=== PATIENT | female | born 2000 | race Caucasian/White ===

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

== ENCOUNTER 2020-04-15 10:06 | Emergency (ER) | payer OTHER ==
[~2020-04-15] VITALS: Ht 170.2 cm; Wt 78.9 kg
--- NOTE | 2020-04-15 10:59 | NUR ---
TASK RN. ASSISTING PRIMARY RN SPENCER WITH PT CHECK IN. 20 Y/O F PRESENTS STATING "PAIN IN MY STOMACH SINCE THIS MORNING, STARTED 30 MINUTES AFTER EATING OATMEAL. SAW MY PCP DR. ARRINGTON AND THEY DID A URINE SAMPLE, SAID I HAD BLOOD IN MY URINE AND THE TEST WAS NEGATIVE. WHEN THE PAIN STARTED IT WAS RADIATING UP MY ARM AND INTO MY BACK BUT THAT HAS STOPPED NOW. I HAVE CHRONIC BACK PAIN AND MY LOWER BACK HAS BEEN SPASMING MORE LATELY. THEY WANT TO RULE OUT APPENDICITIS." ASSESSMENT COMPLETED. ABD SOFT, BOWEL SOUNDS PRESENT/ACTIVE, ABD TENDER TO PALPATION IN ALL QUADRANTS, WORSE IN BLQ. CONT PULSE OX, BP MONITORS APPLIED. VSS. CALL LIGHT IN REACH. FALL PRECAUTIONS IN PLACE. SIDE RAILS UPX2. A&OX4. FAMILY AT BEDSIDE. UA COLLECTED AND SENT TO LAB. DR. WEST AT BEDSIDE FOR EVALUATION, AWAITING ADDITIONAL ORDERS.
--- NOTE | 2020-04-15 11:12 | NUR ---
BEDSIDE REPORT AND TRANSFER OF CARE TO SPENCER RN AT THIS TIME
[2020-04-15] MEDS ORDERED: BIRTH CONTROL PO (11:13)
[2020-04-15] MEDS ORDERED: ALBU8.5H8 INH (11:13)
[2020-04-15 11:14] LABS: MICROSCOPIC AUTO
[2020-04-15 11:35] LABS: BASOPHILS % (AUTO) 1 % (0-1); EOSINOPHILS % (AUTO) 3 % (1-7); LYMPHOCYTES % (AUTO) 28 % (22-44); MD NO; MEAN CORPUSCULAR HEMOGLOBIN 29.2 pg (27.0-34.8); MEAN CORPUSCULAR HGB CONC 33.3 g/dL (32.4-35.8); MEAN PLATELET VOLUME 8.6 fL (7.4-10.4); MONOCYTES % (AUTO) 5 % (2-9); NEUTROPHILS % (AUTO) 63 % (42-75); PLATELET COUNT 297 x10^3/uL (130-400); RED BLOOD COUNT 4.28 x10^6/uL (3.82-5.3); RED CELL DISTRIBUTION WIDTH 12.1 % (9.6-15.2)
[2020-04-15 11:46] LABS: ALANINE AMINOTRANSFERASE 15 U/L (12-78); ALBUMIN 3.8 g/dL (3.4-5.0); ANION GAP 7 mmol/L (5-15); CALCIUM 8.4 mg/dL (8.5-10.1); CHLORIDE 112 mmol/L (98-107); CREATININE 0.75 mg/dL (0.55-1.02)
[2020-04-15 11:50] LABS: ALKALINE PHOSPHATASE 59 U/L (45-117); BILIRUBIN,TOTAL 0.3 mg/dL (0.2-1.0)
--- NOTE | 2020-04-15 12:00 | NUR ---
report taken from ALVARO Larios, this RN assumed care. pt is a&ox4, resps even and unlabored, reporting abd pain is tolerable. declines medication at this time. labs and urine sent, awaiting ct scan and dispo at this time. call light in reach.
[2020-04-15] MEDS ORDERED: OMNIPAQUE 350 MG/ML, 100ML BOTTLE ONE (12:35)
--- NOTE | 2020-04-15 13:30 | NUR ---
ALL RESULTS BACK, CHART UP FOR RECHECK, AWAITING MD AND DISPO.
--- NOTE | 2020-04-15 14:08 | NUR ---
PT RESTING ON GURNEY, A&O, RESPS EVEN AND UNLABORED. PT STATES ABD PAIN MINIMAL, DECLINES NEED FOR PAIN MED. PT INFORMED OF POC AND RESULTS BY MD, PT AGREEABLE TO MRI. S/O AT BEDSIDE. REPORT GIVEN AT BEDSIDE TO ALVARO BROOKS.
--- NOTE | 2020-04-15 14:12 | NUR ---
ERP NOTIFIED PT HAD TRIAGE COMPLAINT OF LEFT ARM, NO EKG TAKEN YET. PER ERP BRETT, PT'S SYMPTOMS DO NOT REQUIRE AN EKG.
--- NOTE | 2020-04-15 14:15 | NUR ---
pt resting in bed. partner supportive at bedside. vss. pain controlled.
[2020-04-15] MEDS ORDERED: GADOTERATE 7.5 MMOL/15 ML VIAL ONE (15:18)
--- NOTE | 2020-04-15 15:20 | NUR ---
PT RESTING IN BED COMFORTABLY. VSS.
[2020-04-15 16:41] VITALS: BP 106/72
== END 2020-04-15 17:26 | disposition home or self-care (01) ==
LOC: ED 12:51
DX: R31.29 Other microscopic hematuria (principal); R10.32 Left lower quadrant pain; R10.31 Right lower quadrant pain
CPT/HCPCS: 36415; 74177; 74183; 80053; 81001; 83690; 84703; 85025; 99285; A9575; Q9967

== ENCOUNTER → 2020-05-15 | Outpatient (CLI) | payer OTHER ==
[~2020-05-15] MED LIST: ALBU8.5H8 INH; BIRTH CONTROL PO
== END | disposition home or self-care (01) ==
LOC: RAD 12:36
PROVIDERS: ATTEND Family Medicine
DX: R10.9 Unspecified abdominal pain (principal)
CPT/HCPCS: 78227; A9537

== ENCOUNTER → 2020-05-22 | Outpatient (CLI) | payer OTHER ==
[~2020-05-22] MED LIST changes: +CETI10TA18 PO; +DICY20TA3 PO; +NORG1TAB8 PO; +SUMA50TA4 PO
== END | disposition home or self-care (01) ==
LOC: STAR 15:30
PROVIDERS: ATTEND Surgery
DX: Z20.828 Contact with and (suspected) exposure to other viral communicable diseases (principal)
CPT/HCPCS: 87635

== ENCOUNTER 2020-05-27 07:54 | Day surgery (SDC) | payer OTHER ==
[~2020-05-27] VITALS: Ht 172.7 cm; Wt 76.8 kg
[~2020-05-27 07:54] MED LIST changes: +BUPIVACAINE/PF 0.25% ONE
[2020-05-27 08:51] VITALS: BP 114/81
[2020-05-27] MEDS ORDERED: CHLORHEXIDINE 15 ML UDC ONE (08:55)
[2020-05-27] MEDS ORDERED: LACTATED RINGERS 1,000 ML IV SCH (09:00)
[2020-05-27] MEDS ORDERED: CHLORHEXIDINE 15 ML UDC MM ONE (09:00)
[2020-05-27 09:06] LABS: HCG UR SG 1.016 (1.003-1.030)
[2020-05-27] MEDS ORDERED: MIDAZOLAM 1 MG/ML, 2ML ONE (09:24)
[2020-05-27] MEDS ORDERED: FENTANYL PF 250 MCG/5ML ONE (09:24)
[2020-05-27] MEDS ORDERED: CEFOTETAN 1 GM ONE (10:21)
[2020-05-27] MEDS ORDERED: KETOROLAC 30 MG/1 ML ONE (10:21)
[2020-05-27] MEDS ORDERED: PROPOFOL 10 MG/ML, 20ML ONE (10:21)
[2020-05-27] MEDS ORDERED: ROCURONIUM 10 MG/ML,10ML ONE (10:21)
[2020-05-27] MEDS ORDERED: ONDANSETRON 2MG/ML, 2ML ONE (10:21)
[2020-05-27] MEDS ORDERED: DEXAMETHASONE 4 MG/ML, 1ML ONE (10:21)
[2020-05-27] MEDS ORDERED: ONDANSETRON 2MG/ML, 2ML IVPush PRN (10:30)
[2020-05-27] MEDS ORDERED: OXYcodone 5 MG/5 ML ORAL.SOL UDC PO PRN (10:30)
[2020-05-27] MEDS ORDERED: MEPERIDINE/PF 25MG/0.5ML IVPush PRN (10:30)
[2020-05-27] MEDS ORDERED: ACETAMINOPHEN 325 MG TABLET PO PRN (10:30)
[2020-05-27] MEDS ORDERED: HYDROmorphone 1 MG/ML, 1ML INJ IVPush PRN (10:30)
[2020-05-27] MEDS ORDERED: BUPIVACAINE/PF 0.25% INFIL ONE (10:34)
[2020-05-27] MEDS ORDERED: FENTANYL PF 100 MCG/2ML ONE (11:02)
[2020-05-27] MEDS: FENTANYL PF 100 MCG/2ML IV PRN ×2 (11:04→11:17)
[2020-05-27] MEDS ORDERED: OXYcodone 5 MG/5 ML ORAL.SOL UDC ONE (11:28)
== END 2020-05-27 13:05 | disposition home or self-care (01) ==
LOC: OUT 07:54
PROVIDERS: ATTEND Surgery
DX: K82.8 Other specified diseases of gallbladder (principal); K80.10 Calculus of gallbladder with chronic cholecystitis without obstruction; J45.909 Unspecified asthma, uncomplicated; Z79.899 Other long term (current) drug therapy
CPT/HCPCS: 47562; 81025; 88304; J1100; J1885; J2250; J2405; J2704; J3010; J7120

== ENCOUNTER 2020-07-25 05:28 | Day surgery (SDC) | payer OTHER ==
[2020-07-23 13:36] LABS: BASOPHILS % (AUTO) 1 % (0-1); EOSINOPHILS % (AUTO) 6 % (1-7); LYMPHOCYTES % (AUTO) 35 % (22-44); MD NO; MEAN CORPUSCULAR HGB CONC 34.4 g/dL (32.4-35.8); MEAN PLATELET VOLUME 8.2 fL (7.4-10.4); MONOCYTES % (AUTO) 7 % (2-9); NEUTROPHILS % (AUTO) 51 % (42-75); PLATELET COUNT 296 x10^3/uL (130-400); RED BLOOD COUNT 4.29 x10^6/uL (3.82-5.3)
[~2020-07-25] VITALS: Ht 172.7 cm; Wt 79.0 kg
[~2020-07-25 05:28] MED LIST changes: +ASCO500T8 PO; +BIOT1TAB2 PO; -BUPIVACAINE/PF 0.25% ONE; +CEFAZOLIN 1,000 MG ONE; +DEXAMETHASONE 4 MG/ML, 1ML ONE; -DICY20TA3 PO; +DICY20TA4 PO; +DIPH-419 PO; +DIPH25CA61 PO; +DOXY100C15 PO; +GLYCOPYRROLATE 0.2MG/1ML, 5ML ONE; +LORA10TA75 PO; +METOCLOPRAMIDE 5 MG/ML, 2ML ONE; +NEOSTIGMINE 1 MG/ML, 10ML ONE; +NORE0.3552 PO; +ONDANSETRON 2MG/ML, 2ML ONE; +ROCURONIUM 10 MG/ML,10ML ONE; +SUCCINYLCHOLINE 20 MG/ML, 10ML ONE; +ZINC30CA PO
[2020-07-25 06:05] VITALS: BP 122/84
[2020-07-25] MEDS ORDERED: LACTATED RINGERS 1,000 ML IV SCH (06:30)
[2020-07-25] MEDS ORDERED: GABAPENTIN 300 MG CAPSULE PO ONE (06:30)
[2020-07-25] MEDS ORDERED: CHLORHEXIDINE 15 ML UDC MM ONE (06:30)
[2020-07-25] MEDS ORDERED: ACETAMINOPHEN 500 MG TABLET PO ONE (06:30)
[2020-07-25] MEDS ORDERED: FENTANYL PF 250 MCG/5ML ONE (06:54)
[2020-07-25] MEDS ORDERED: MIDAZOLAM 1 MG/ML, 2ML ONE (06:54)
[2020-07-25] MEDS ORDERED: BUPIVACAINE/PF 0.25% ONE (06:56)
[2020-07-25] MEDS ORDERED: SCOPOLAMINE 1MG PATCH TD ONE (07:15)
[2020-07-25] MEDS ORDERED: OXYcodone 5 MG/5 ML ORAL.SOL UDC PO PRN (07:30)
[2020-07-25] MEDS ORDERED: hydrALAzine 20 MG/ML, 1ML IV PRN (07:30)
[2020-07-25] MEDS ORDERED: ONDANSETRON 2MG/ML, 2ML IVPush PRN (07:30)
[2020-07-25] MEDS ORDERED: LORazepam 2 MG/ML, 1ML IVPush PRN (07:30)
[2020-07-25] MEDS ORDERED: LABETALOL 5MG/ML, 20ML IV PRN (07:30)
[2020-07-25] MEDS ORDERED: PROMETHAZINE 25 MG/ML, 1ML IVPush PRN (07:30)
[2020-07-25] MEDS ORDERED: HALOPERIDOL 5 MG/ML IV PRN (07:30)
[2020-07-25] MEDS ORDERED: FENTANYL PF 100 MCG/2ML IV PRN (07:30)
[2020-07-25] MEDS ORDERED: HYDROmorphone 1 MG/ML, 1ML INJ IVPush PRN (07:30)
[2020-07-25] MEDS ORDERED: METHOCARBAMOL 1,000 MG in DEXTROSE 5% 100 ML IV PRN (07:30)
[2020-07-25] MEDS ORDERED: PROPOFOL 50 ML ONE ×2 (07:41→07:57)
[2020-07-25] MEDS ORDERED: BUPIVACAINE/PF 0.25% INFIL ONE (07:44)
== END 2020-07-25 10:00 | disposition home or self-care (01) ==
LOC: OUT 05:28
PROVIDERS: ATTEND Obstetrics & Gynecology
DX: N94.10 Unspecified dyspareunia (principal); N94.6 Dysmenorrhea, unspecified; K65.9 Peritonitis, unspecified; J45.909 Unspecified asthma, uncomplicated; G43.909 Migraine, unspecified, not intractable, without status migrainosus; Z20.822 Contact with and (suspected) exposure to COVID-19; Z79.3 Long term (current) use of hormonal contraceptives; Z79.899 Other long term (current) drug therapy; Z90.49 Acquired absence of other specified parts of digestive tract; Z84.2 Family history of other diseases of the genitourinary system
CPT/HCPCS: 36415; 49321; 84702; 85025; 88305; J0330; J0690; J1100; J2250; J2405; J2704; J2710; J2765; J3010; J7120; U0003